=== PATIENT | female | born 1960 | race Caucasian/White ===

== ENCOUNTER 2016-08-14 12:51 | Emergency (ER) | payer BC ==
--- NOTE | 2016-08-14 13:10 | ED ---
General Adult HPI - General Chief complaint: Extremity Injury, Upper Stated complaint: Right Hand Injury Time Seen by Provider: 08/14/16 13:04 Source: patient, RN notes reviewed Mode of arrival: ambulatory Limitations: no limitations - History of Present Illness Initial comments: Patient 55-year-old female who presents emergency room today with a chief complaint of injury to the right wrist that occurred yesterday. She does admit that she tripped falling forward on ultrasound. Does admit that she does have some tenderness with both the distal ulna and radius. States worse with certain movements. She states she was at work today and advised that she needed to have it checked out. Patient denies any other complaints or injuries. Patient denies any recent fever, chills, shortness of breath, chest pain, back pain, abdominal pain, nausea or vomiting, numbness or tingling, dysuria or hematuria, constipation or diarrhea, headaches or visual changes, or any other complaints. - Related Data Home Medications Medication Instructions Recorded Confirmed Calcium Carb-Vit D 500Mg-200Un 1 tab PO DAILY 12/05/13 08/14/16 [Oscal 500+D] HYDROcodone/APAP 10-325MG [[place] 1 tab PO BID PRN 12/05/13 08/14/16 10-325] Losartan/Hydrochlorothiazide 1 tab PO DAILY 12/05/13 08/14/16 [Losartan-Hctz 100-12.5 mg Tab] Metoprolol Succinate [Toprol XL] 50 mg PO DAILY 12/05/13 08/14/16 ALPRAZolam [Alprazolam] 0.5 mg PO BID PRN 08/14/16 08/14/16 Insuln Asp Prt/Insulin Aspart 30 unit SQ AC-BID@0700,1200 08/14/16 08/14/16 [NovoLOG MIX 70-30 VIAL] Insuln Asp Prt/Insulin Aspart 50 unit SQ AC-SUPPER 08/14/16 08/14/16 [NovoLOG MIX 70-30 VIAL] Levothyroxine Sodium [Synthroid] 112 mcg PO DAILY 08/14/16 08/14/16 Meloxicam [Meloxicam] 15 mg PO DAILY 08/14/16 08/14/16 amLODIPine [Norvasc] 5 mg PO DAILY 08/14/16 08/14/16 metFORMIN HCL 1,000 mg PO BID 08/14/16 08/14/16 Allergies Allergy/AdvReac Type Severity Reaction Status Date / Time No Known Allergies Allergy Verified 08/14/16 13:33 Review of Systems ROS Statement: Those systems with pertinent positive or pertinent negative responses have been documented in the HPI. ROS Other: All systems not noted in ROS Statement are negative. Past Medical History Past Medical History: Diabetes Mellitus, Hypertension, Sleep Apnea/CPAP/BIPAP, Thyroid Disorder Additional Past Medical History / Comment(s): obesity History of Any Multi-Drug Resistant Organisms: None Reported Past Surgical History: Bariatric Surgery, Section, Cholecystectomy, Joint Replacement, Tonsillectomy, Tubal Ligation Additional Past Surgical History / Comment(s): Bunyan surgery, D&Cs knee replacement Past Anesthesia/Blood Transfusion Reactions: Motion Sickness, Postoperative Nausea & Vomiting (PONV) Past Psychological History: Anxiety, Depression Smoking Status: Never smoker Past Alcohol Use History: None Reported Past Drug Use History: None Reported - Past Family History Mother Family Medical History: Cancer Father Family Medical History: Diabetes Mellitus Additional Family Medical History / Comment(s): epilepsy General Exam - General Exam Comments Initial Comments: General: The patient is awake and alert, in no distress, and does not appear acutely ill. Neck: The neck is supple, there is no tenderness or JVD. Cardiovascular: There is a regular rate and rhythm. No murmur, rub or gallop is appreciated. Respiratory: Lungs are clear to auscultation, respirations are non-labored, breath sounds are equal. No wheezes, stridor, rales, or rhonchi. Musculoskeletal: Normal appearance the right wrist obvious deformity. Shows full range of motion all directions. Sensations are intact with pulses equal bilaterally 2+. Mild tenderness both the distal radius and ulna. No snuffbox tenderness. Strength 5/5. Neurological: A&O x 3. CN II-XII intact, There are no obvious motor or sensory deficits. Coordination appears grossly intact. Speech is normal. Skin: Skin is warm and dry and no rashes or lesions are noted. Psychiatric: Normal mood and affect. Limitations: no limitations Course Vital Signs 08/14/16 13:00 Temperature 97.5 F L Pulse Rate 92 Respiratory 18 Rate Blood Pressure 172/79 O2 Sat by Pulse 97 Oximetry Medical Decision Making - Medical Decision Making Patient's x-rays reviewed and does show possible ligamentous injury with widening of the scaphoid lunate on x-ray. No fractures appreciated. Patient has been splinted in a short arm volar splint. Patient advised to leave splint placed follow-up orthopedics over the next 2 days. Disposition Clinical Impression: Wrist injury Disposition: HOME SELF-CARE Condition: Good Instructions: Wrist Injury (ED) Additional Instructions: Please continue to ice elevate the affected area until follow-up with orthopedics. Please leave splint placed until follow-up appointment. Please return to emergency room for any other concerns. Referrals: Isac Duarte MD [Primary Care Provider] - 1-2 days Luis Rendon MD [Medical Doctor] - 1-2 days Time of Disposition: 14:24
--- NOTE | 2016-08-14 13:34 | XR ---
EXAMINATION TYPE: XR wrist complete RT DATE OF EXAM ORDERED: 08/14/2016 1:24 PM HISTORY: Pain. COMPARISON: Previous study dated 03/29/2013. FINDINGS: There are degenerative changes in the triscaphe joint. There is widening of scapholunate d istance suggesting scapholunate ligament tear. No fracture, dislocation or other acute osseous lesion is seen. IMPRESSION: 1. NO ACUTE OSSEOUS LESION. DEGENERATIVE CHANGE IN THE TRISCAPHE JOINT. 3. WIDENING OF THE SCAPHOLUNATE DISTANCE SUGGESTS SCAPHOLUNATE LIGAMENT TEAR.
[2016-08-14 14:34] VITALS: BP 157/84; PULSE 85; RESP 16; TEMP 97.9
== END 2016-08-14 14:36 | disposition home or self-care (01) ==
LOC: EC 12:51
DX: S69.91XA Unspecified injury of right wrist, hand and finger(s), initial encounter (principal); E11.9 Type 2 diabetes mellitus without complications; I10 Essential (primary) hypertension; E07.9 Disorder of thyroid, unspecified; E66.9 Obesity, unspecified; F32.9 Major depressive disorder, single episode, unspecified; F41.9 Anxiety disorder, unspecified; Z79.4 Long term (current) use of insulin; Z79.1 Long term (current) use of non-steroidal anti-inflammatories (NSAID); Z79.899 Other long term (current) drug therapy; W01.0XXA Fall on same level from slipping, tripping and stumbling without subsequent striking against object, initial encounter; Y92.009 Unspecified place in unspecified non-institutional (private) residence as the place of occurrence of the external cause
CPT/HCPCS: 29125; 99283

== ENCOUNTER → 2019-02-16 | Outpatient (CLI) | payer BC ==
--- NOTE | 2019-02-16 20:17 | CONS ---
CONSULTATION DATE OF SERVICE: 02/16/2019 This patient is a 58-year-old lady who has been followed in [facility] for treatment of obstructive sleep apnea-hypopnea syndrome. HISTORY OF PRESENT ILLNESS/SLEEP-WAKE EVALUATION: The patient has had history of obstructive sleep apnea for about 10 years. Her sleep schedule is from 8 p.m. to 4:30 a.m. on working days and to 6 a.m. on weekends. No problems with falling asleep, although she has a TV set in bedroom. She sleeps on the back and side positions. She is trying to use her CPAP equipment every night, but recently she has had problems with the equipment because the machine stops working sometimes. She has significantly lost weight since previous titration of about 61 pounds. She wakes up from sleep 2 times with nocturia, even while she is using her CPAP equipment. No history of hypnagogic hallucinations, sleep paralysis or cataplexy. The patient feels sleepy during the day. [place] Sleepiness Scale is increased at 11. PAST MEDICAL HISTORY: Past medical history is positive for: 1. Diabetes mellitus. 2. Hypertension. 3. Hyperlipidemia. 4. Hypothyroidism. PAST SURGICAL HISTORY: 1. Tonsillectomy. 2. Cholecystectomy. 3. Lap band surgery. 4. Total left knee replacement in 2016. MEDICATIONS: 1. Losartan. 2. Metoprolol. 3. Crestor. 4. Levothyroxine. 5. NovoLog. 6. Trulicity. 7. Basaglar. 8. Metformin. 9. Farxiga. 10.Omeprazole. SOCIAL HISTORY: Negative for smoking. Alcohol consumption none. FAMILY HISTORY: Hypertension, heart problems, epilepsy, stroke, arthritis, sinus problems, sleep apnea, bronchitis, cancer, headaches, diabetes, thyroid problems, acid reflux, restless legs. REVIEW OF SYSTEMS: Awakenings from sleep, sleepiness during the day. Swelling of legs. PHYSICAL EXAMINATION: GENERAL: A pleasant lady without distress. VITAL SIGNS: BP 135/85, HR 97, RR 16, height 5 feet 6 inches, weight 321.8, body mass index 51.8, temperature 98.1, oxygen saturation at room air 98%. HEENT: PERRLA, EOMI. Evaluation of oropharynx showed tongue protrudes midline. Low position of soft palate. Mallampati III. Wide pillars. Slight redness of the throat. NECK: Supple. No JVD. Thyroid is not palpable. Wide neck; 17-3/4 inches in circumference. LUNGS: Clear to percussion and to auscultation. Good air exchange. No wheezing or rhonchi. HEART: S1, S2 regular. No murmurs, gallops or rubs. ABDOMEN: Obese. EXTREMITIES: One plus bilateral ankle edema. CHOIR SINGER: Awake, alert, and oriented X3. Cranial nerves 2 to 7 intact. There is no fasciculation or atrophy. noted. No focal deficits observed. IMPRESSION: 1. Obstructive sleep apnea-hypopnea syndrome. The patient continues to use her CPAP equipment but at present has some problem with her CPAP unit. She lost about 61 pounds of weight. She wakes up from sleep with nocturia while using her CPAP and has sleepiness during the day while in treatment with CPAP. 2. Severe obesity. Present body mass index is 51.8. 3. Hypertension. 4. Diabetes mellitus. 5. Hyperlipidemia. 6. Hypothyroidism. 7. Status post tonsillectomy. 8. Status post cholecystectomy. 9. Status post lap band surgery. 10.Status post total left knee replacement. 11.Swelling of the legs. PLAN: 1. Repeat CPAP titration for re-evaluation of effective CPAP pressure. 2. Continue losing weight. 3. Sleep hygiene with regular time in bed for at least 7-1/2 to 8 hours. 4. No driving if feeling any sleepiness. 5. I will send a prescription for all necessary CPAP supplies. Thank you very much for allowing me to participate in the management of your patient. Sincerely, Irineo Krishnamurthy MD, PhD, FAASM Diplomat of [employer] [facility] Administrator [facility] [place] MMODL / DIN: [id number] /
== END | disposition home or self-care (01) ==
LOC: SLEEP 15:09
PROVIDERS: ATTEND Internal Medicine
DX: G47.33 Obstructive sleep apnea (adult) (pediatric) (principal); E66.9 Obesity, unspecified; Z68.43 Body mass index [BMI] 50.0-59.9, adult; I10 Essential (primary) hypertension; E11.9 Type 2 diabetes mellitus without complications; E78.5 Hyperlipidemia, unspecified; E03.9 Hypothyroidism, unspecified; R35.1 Nocturia; M79.89 Other specified soft tissue disorders; Z90.89 Acquired absence of other organs; Z90.49 Acquired absence of other specified parts of digestive tract; Z98.84 Bariatric surgery status; Z96.652 Presence of left artificial knee joint; Z79.84 Long term (current) use of oral hypoglycemic drugs; Z79.4 Long term (current) use of insulin; Z79.899 Other long term (current) drug therapy

== ENCOUNTER 2019-04-12 14:39 | Emergency (ER) | payer BC ==
[2019-04-12 14:50] VITALS: BP 172/81; PULSE 103; RESP 20; TEMP 97.6
--- NOTE | 2019-04-12 15:06 | ED ---
ENT HPI - General Chief complaint: ENT Stated complaint: sore throat Time Seen by Provider: 04/12/19 14:50 Source: patient, RN notes reviewed Mode of arrival: ambulatory Limitations: no limitations - History of Present Illness Initial comments: 58-year-old female presents emergency Department chief complaint nasal congestion, sinus pressure, sore throat. Patient has been sick for 1 week. She does have a cough and nonproductive no chest pain or shortness of breath. She has tried every [id number] medication she can think of is not improving. Patient denies any difficulty swallowing patient states that she is very dry, sore feeling. - Related Data Home Medications Medication Instructions Recorded Confirmed Calcium Carb-Vit D 500Mg-200Un 1 tab PO DAILY 12/05/13 08/14/16 [Oscal 500+D] HYDROcodone/APAP 10-325MG [[place] 1 tab PO BID PRN 12/05/13 08/14/16 10-325] Losartan/Hydrochlorothiazide 1 tab PO DAILY 12/05/13 08/14/16 [Losartan-Hctz 100-12.5 mg Tab] Metoprolol Succinate [Toprol XL] 50 mg PO DAILY 12/05/13 08/14/16 ALPRAZolam [Alprazolam] 0.5 mg PO BID PRN 08/14/16 08/14/16 Insuln Asp Prt/Insulin Aspart 30 unit SQ AC-BID@0700,1200 08/14/16 08/14/16 [NovoLOG MIX 70-30 VIAL] Insuln Asp Prt/Insulin Aspart 50 unit SQ AC-SUPPER 08/14/16 08/14/16 [NovoLOG MIX 70-30 VIAL] Levothyroxine Sodium [Synthroid] 112 mcg PO DAILY 08/14/16 08/14/16 Meloxicam 15 mg PO DAILY 08/14/16 08/14/16 amLODIPine [Norvasc] 5 mg PO DAILY 08/14/16 08/14/16 metFORMIN HCL 1,000 mg PO BID 08/14/16 08/14/16 Previous Rx's Medication Instructions Recorded Amoxicillin/Potassium Clav 1 tab PO Q12HR #20 tab 04/12/19 [Augmentin 875-125 Tablet] Allergies Allergy/AdvReac Type Severity Reaction Status Date / Time No Known Allergies Allergy Verified 04/12/19 14:50 Review of Systems ROS Statement: Those systems with pertinent positive or pertinent negative responses have been documented in the HPI. ROS Other: All systems not noted in ROS Statement are negative. Past Medical History Past Medical History: Diabetes Mellitus, Hypertension, Sleep Apnea/CPAP/BIPAP, Thyroid Disorder Additional Past Medical History / Comment(s): obesity History of Any Multi-Drug Resistant Organisms: None Reported Past Surgical History: Bariatric Surgery, Section, Cholecystectomy, Joint Replacement, Tonsillectomy, Tubal Ligation Additional Past Surgical History / Comment(s): Bunyan surgery, D&Cs knee replac ement Past Anesthesia/Blood Transfusion Reactions: Motion Sickness, Postoperative Nausea & Vomiting (PONV) Past Psychological History: Anxiety, Depression Smoking Status: Never smoker Past Alcohol Use History: None Reported Past Drug Use History: None Reported - Past Family History Mother Family Medical History: Cancer Father Family Medical History: Diabetes Mellitus Additional Family Medical History / Comment(s): epilepsy General Exam Limitations: no limitations General appearance: alert, in no apparent distress Head exam: Present: atraumatic, normocephalic, normal inspection Eye exam: Present: normal appearance, PERRL, EOMI. Absent: scleral icterus, conjunctival injection, periorbital swelling ENT exam: Present: mucous membranes moist, TM's normal bilaterally, normal external ear exam. Absent: normal oropharynx (Postnasal drainage, cobblestoning, mild erythema) Neck exam: Present: normal inspection, full ROM. Absent: tenderness, meningismus, lymphadenopathy Respiratory exam: Present: normal lung sounds bilaterally. Absent: respiratory distress, wheezes, rales, rhonchi, stridor Cardiovascular Exam: Present: regular rate, normal rhythm, normal heart sounds. Absent: systolic murmur, diastolic murmur, rubs, gallop, clicks GI/Abdominal exam: Present: soft, normal bowel sounds. Absent: distended, ten derness, guarding, rebound, rigid Course Vital Signs 04/12/19 14:46 Temperature 97.6 F Pulse Rate 103 H Respiratory 20 Rate Blood Pressure 172/81 O2 Sat by Pulse 96 Oximetry Medical Decision Making - Medical Decision Making Patient was treated for acute sinusitis, acute pharyngitis with Augmentin. Patient will continue [id number] cough and cold medications return parameters discussed. Disposition Clinical Impression: Sore throat, Acute sinusitis Disposition: HOME SELF-CARE Condition: Stable Instructions (If sedation given, give patient instructions): Sinusitis (ED) Additional Instructions: Please return to the Emergency Department if symptoms worsen or any other concerns. Prescriptions: Amoxicillin/Potassium Clav [Augmentin 875-125 Tablet] 1 tab PO Q12HR #20 tab Is patient prescribed a controlled substance at d/c from ED?: No Referrals: Isac Duarte MD [Primary Care Provider] - 1-2 days Time of Disposition: 15:06
== END 2019-04-12 15:15 | disposition home or self-care (01) ==
LOC: EC 14:39
DX: J01.90 Acute sinusitis, unspecified (principal); J02.9 Acute pharyngitis, unspecified; E11.9 Type 2 diabetes mellitus without complications; I10 Essential (primary) hypertension; E07.9 Disorder of thyroid, unspecified; G47.30 Sleep apnea, unspecified; Z79.1 Long term (current) use of non-steroidal anti-inflammatories (NSAID); Z79.4 Long term (current) use of insulin; Z79.890 Hormone replacement therapy; Z79.899 Other long term (current) drug therapy; Z90.89 Acquired absence of other organs; Z99.89 Dependence on other enabling machines and devices
CPT/HCPCS: 99282

== ENCOUNTER → 2019-05-31 | Outpatient (CLI) | payer BC ==
--- NOTE | 2019-05-31 17:52 | PN ---
PROGRESS NOTE DATE OF SERVICE: 05/31/2019 58-year-old lady has been followed in Sleep Center for treatment of obstructive sleep apnea-hypopnea syndrome. Recently patient had CPAP titration and after that she received new CPAP unit. Today is her first visit with new CPAP equipment. She likes her new machine. Machine works well for her. She is able to use it every night without significant problems with the machine. Sometimes she is saying that there is a red face on the screen of the machine indicating that she has a leak from the mask. [place] Sleepiness Scale today is 8, which is in normal range. I checked CPAP unit, range of the pressure 9-15, average pressure 10.4 cm of water. The patient is using equipment every night 30/30 nights and 30/30 nights more than 4 hours with average usage 8.2 hours per night, which is 100% compliance with treatment. Leak is high 47 L/minute. At the same time, apnea-hypopnea index is only 1.2, which is absolutely perfect. MEDICATIONS: Losartan, metoprolol, Crestor, levothyroxine, NovoLog, Trulicity, Basaglar, Metformin, omeprazole. PHYSICAL EXAM: During physical examination, patient in no distress. BP 165/79, HR 98, RR 16, weight 310, temp 97.9 oxygen saturation at room air 97%. HEENT: Oropharynx low position of soft palate. Mallampati 4. NECK: Supple, no JVD. Thyroid is not palpable. LUNGS: Clear to percussion and to auscultation. Good air exchange. No wheezing or rhonchi. HEART: S1, S2 regular. No murmurs, gallops, or rubs. ABDOMEN: Obese. Soft and nontender. Bowel sounds are present. No organomegaly appreciated. EXTREMITIES: 1+ ankle edema. MEDICAL LEAD: Awake, alert, and oriented X3. Cranial nerves 2 to 7 intact. There is no fasciculation or atrophy. noted. No focal deficits observed. IMPRESSION: 1. Obstructive sleep apnea-hypopnea syndrome. Patient demonstrated 100% compliance with treatment benefitting from treatment. Normal aspiration on CPAP. 2. Significant leak according to reading from the machine, most probably patient opening her mouth. 3. Obesity. 4. Hypertension. 5. Diabetes mellitus. 6. Hypothyroidism. 7. Status post tonsillectomy. 8. Status post lap band surgery. 9. Hyperlipidemia. 10.Status post cholecystectomy. 11.Status post total knee replacement on left side. PLAN: 1. Patient will continue to use CPAP equipment every night for the whole night. 2. Losing weight. 3. Sleep hygiene with regular time in bed for at least 7.5 to 8 hours. 4. Prescription for chin strap to avoid leak. 5. No driving if feeling sleepiness. Thank you very much for allowing me to participate in management of your patient. Sincerely, Irineo Krishnamurthy MD, PhD, FAASM Diplomat of [employer] [employer] [employer] [place] Consultant [facility] [place] MMODL / IJN: [id number] /
== END | disposition home or self-care (01) ==
LOC: SLEEP 15:21
PROVIDERS: ATTEND Internal Medicine
DX: G47.33 Obstructive sleep apnea (adult) (pediatric) (principal); E66.9 Obesity, unspecified; I10 Essential (primary) hypertension; E11.9 Type 2 diabetes mellitus without complications; E78.5 Hyperlipidemia, unspecified; E03.9 Hypothyroidism, unspecified; Z90.89 Acquired absence of other organs; Z98.84 Bariatric surgery status; Z90.49 Acquired absence of other specified parts of digestive tract; Z96.652 Presence of left artificial knee joint; Z99.89 Dependence on other enabling machines and devices; Z79.890 Hormone replacement therapy; Z79.4 Long term (current) use of insulin; Z79.899 Other long term (current) drug therapy

== ENCOUNTER → 2020-11-08 | Outpatient (CLI) | payer BC ==
--- NOTE | 2020-11-08 11:22 | XR ---
EXAMINATION TYPE: XR Hip Bilateral Complete DATE OF EXAM: 11/08/2020 CLINICAL HISTORY: pain TECHNIQUE: AP and frogleg views of the bilateral hip are obtained. COMPARISON: None. FINDINGS: There is no acute fracture/dislocation evident. The joint space appears within normal li mits. The overlying soft tissue appears unremarkable. IMPRESSION: 1. There is no acute fracture or dislocation. ICD 10 NO FRACTURE, INITIAL EVALUATION
== END | disposition home or self-care (01) ==
LOC: RADXRMAIN 10:39
PROVIDERS: ATTEND Student in an Organized Health Care Education/Training Program
DX: M25.552 Pain in left hip (principal); M25.551 Pain in right hip
CPT/HCPCS: 73521

== ENCOUNTER 2022-05-13 09:18 | Emergency (ER) | payer BC, OTHER ==
[2022-05-13 09:30] LABS: Glucose,Whole Blood 506 mg/dL (70-110)
[2022-05-13] MEDS ORDERED: SODIUM CHLORIDE 0.9% 2,000 ML IV STA (09:42)
[2022-05-13] MEDS ORDERED: PANTOPRAZOLE 40 MG/10 ML VIAL IVP STA (09:42)
[2022-05-13] MEDS ORDERED: METOPROLOL SUCCINATE (ER) 50 MG TAB.ER.24H PO STA (09:44)
[2022-05-13] MEDS ORDERED: KETOROLAC 15 MG/ML 1 ML VIAL IVP STA (09:48)
--- NOTE | 2022-05-13 09:51 | ED ---
General Adult HPI - General Chief complaint: Recheck/Abnormal Lab/Rx Stated complaint: abn labs, hypertension Time Seen by Provider: 05/13/22 09:35 Source: patient, RN notes reviewed, old records reviewed Mode of arrival: ambulatory - History of Present Illness Initial comments: Patient is a 61-year-old female with past history remarkable for hypertension, diabetes, sleep apnea, obesity who presents emergency Department after and sent by her PCP for further evaluation. I PCP yesterday, was hypertensive with systolics in the high 100s. States she believes she has been compliant with medications but did not take them this morning. Patient's blood sugar was also high in the 500s. She presents today after being told to come be evaluated. Patient does endorse some mild chest discomfort which has been ongoing for weeks, is more or less always present with no known palliative or provocative factors. Describes as a pressure sensation over the entire chest. No change in it. Denies any coughing but does endorse rhinorrhea. She states she has ALLERGIES. Denies any lower extremity pain or swelling. Denies any abdominal pain, nausea, vomiting. Does have chronic loose stool. Denies any urinary complaints. Denies any known sick contacts are sick symptoms. Denies any fevers. States she does feel thirsty. No change in urinary habits. Has no other acute complaints at this time. She presents to be evaluated for possible DKA as well as for her hypertension. He continues to endorse a slight headache that she describes as a typical headache for her in a bandlike distribution. - Related Data Home Medications Medication Instructions Recorded Confirmed Calcium Carb-Vit D 500Mg-5Mcg 1 tab PO DAILY 12/05/13 08/14/16 [Oscal 500+D 5 Mcg (200 Iu)] HYDROcodone/APAP 10-325MG [[place] 1 tab PO BID PRN 12/05/13 08/14/16 10-325] Losartan/Hydrochlorothiazide 1 tab PO DAILY 12/05/13 08/14/16 [Losartan-Hctz 100-12.5 mg Tab] Metoprolol Succinate [Toprol XL] 50 mg PO DAILY 12/05/13 08/14/16 ALPRAZolam [Alprazolam] 0.5 mg PO BID PRN 08/14/16 08/14/16 Insuln Asp Prt/Insulin Aspart 30 unit SQ AC-BID@0700,1200 08/14/16 08/14/16 [NovoLOG MIX 70-30 VIAL] Insuln Asp Prt/Insulin Aspart 50 unit SQ AC-SUPPER 08/14/16 08/14/16 [NovoLOG MIX 70-30 VIAL] Levothyroxine Sodium [Synthroid] 112 mcg PO DAILY 08/14/16 08/14/16 Meloxicam 15 mg PO DAILY 08/14/16 08/14/16 amLODIPine [Norvasc] 5 mg PO DAILY 08/14/16 08/14/16 metFORMIN HCL [Glucophage] 1,000 mg PO BID 08/14/16 08/14/16 Previous Rx's Medication Instructions Recorded Amoxicillin/Potassium Clav 1 tab PO Q12HR #20 tab 04/12/19 [Augmentin 875-125 Tablet] Allergies Allergy/AdvReac Type Severity Reaction Status Date / Time No Known Allergies Allergy Verified 05/13/22 09:31 Review of Systems ROS Statement: Those systems with pertinent positive or pertinent negative responses have been documented in the HPI. Review of Systems: CONST: Denies fever EYES: Denies blurry vision ENT: Denies nasal congestion C/V: Denies Chest pain RESP: Denies shortness of breath GI: Denies abdominal pain : Denies dysuria SKIN: Denies rash. MSK: Denies joint pain. NEURO: Endorses headache ROS Other: All systems not noted in ROS Statement are negative. Past Medical History Past Medical History: Diabetes Mellitus, Hypertension, Sleep Apnea/CPAP/BIPAP, Thyroid Disorder Additional Past Medical History / Comment(s): obesity History of Any Multi-Drug Resistant Organisms: None Reported Past Surgical History: Bariatric Surgery, Section, Cholecystectomy, Joint Replacement, Tonsillectomy, Tubal Ligation Additional Past Surgical History / Comment(s): [place] surgery, D&Cs knee replacement Past Anesthesia/Blood Transfusion Reactions: Motion Sickness, Postoperative Nausea & Vomiting (PONV) Smoking Status: Current every day smoker, Former smoker Past Alcohol Use History: None Reported Past Drug Use History: None Reported - Past Family History Mother Family Medical History: Cancer Father Family Medical History: Diabetes Mellitus Additional Family Medical History / Comment(s): epilepsy General Exam - General Exam Comments Initial Comments: General: Appears in no acute distress. HEAD: Normal with no signs of head trauma. EYES: PERRLA, EOMI, conjunctiva normal, no discharge. ENT: Hearing grossly intact, normal oropharynx. Moist mucous membrane. RESPIRATORY: Clear breath sounds bilaterally. No wheezes, rales, or rhonchi. C/V: Regular rate and rhythm. S1 and S2 auscultated, no edema, peripheral pulses 2+ and intact throughout ABD: Abd is soft, nontender, nondistended EXT: Normal range of motion, no obvious deformity SKIN: No rashes or lesions observed on exposed skin. NEURO: Alert and oriented x 4. Cranial nerves II-XII intact. No focal sensory or strength deficits. Course Vital Signs 05/13/22 05/13/22 05/13/22 09:26 10:32 11:00 Temperature 97.6 F Pulse Rate 98 77 82 Respiratory 16 16 18 Rate Blood Pressure 162/90 162/79 162/79 O2 Sat by Pulse 97 98 99 Oximetry 05/13/22 11:30 Temperature Pulse Rate 70 Respiratory 20 Rate Blood Pressure 160/86 O2 Sat by Pulse 98 Oximetry Medical Decision Making - Medical Decision Making Based on the patient's presentation and physical exam, she presents with a point of care blood sugar over 500, and mildly hypertensive. Did not take her blood pressure medications this morning. Only other complaint is a mild headache. I would like to rule out DKA for her and therefore we will obtain abdominal laboratory studies as well as acetone. Did recommend we also obtain EKG, troponin due to her chest discomfort. She was in agreement this plan. Chest x- ray will be obtained as well as urinalysis to look for signs of infection as well as viral swabs. She'll be given 2 L IV fluid bolus as well as IV Protonix, Toradol. She'll be given a dose of her home metoprolol. Vital signs are within acceptable limits otherwise. Slightly hypertensive. EKG shows no signs of acute ischemia.Patient's EKG shows no signs of acute ischemia. Chest x-ray reveals no evidence of acute cardio pulmonary process. Laboratory studies are remarkable for no evidence of DKA. She does have asymptomatic hyperglycemia. Troponin is undetectable. Covid, flu, RSV negative. Reevaluation after fluid boluses, patient's Accu-Chek reads 381. She'll be given IV insulin. I did that her on her results. She expressed understanding. At this time she states she has not filled the prescription is and has not been taking her medications for quite some time. She states she has pharmacy holding her prescriptions as she does get. This week and wishes to fill them this week. I stressed the importance of medication compliance. She was in agreement this plan. Repeat Accu-Chek is within acceptable limits. She'll be discharged home at this time with strict instructions to fill her prescriptions. I instructed the patient to follow up with their PCP in the next 1-3 days. I explained that the patient should return to the emergency department if they experience any worsening symptoms. Strict return precautions were discussed with the patient. The patient expressed understanding of these instructions. I answered all questions that the patient had. The patient was discharged home in good condition with their prescriptions and follow up information. Was pt. sent in by a medical professional or institution (, PA, MACHINE INSPECTOR, urgent care, hospital, or prison...) When possible be specific @ -Yes, her PCP Dr. Barraza sent her in for evaluation of a concern for DKA. Did you speak to anyone other than the patient for history (EMS, parent, family, police, friend...)? What history was obtained from this source @ -No Did you review nursing and triage notes (agree or disagree)? Why? @ -I reviewed and agree with nursing and triage notes Were old charts reviewed (outside hosp., previous admission, EMS record, old EKG, old radiological studies, urgent care reports/EKG's, prison records)? Report findings @ -Yes, old charts were reviewed and to EKG from June 2014 was reviewed. Differential Diagnosis (chest pain, altered mental status, abdominal pain women, abdominal pain men, vaginal bleeding, weakness, fever, dyspnea, syncope, heada tab, dizziness, GI bleed, back pain, seizure, CVA, palpatations, mental health)? @ -Hyperglycemia, DKA, symptomatic hypertension, ACS, chronic chest pain, medication noncompliance. This list is not all inclusive. EKG interpreted by me (3pts min.). @ -As above X-rays interpreted by me (1pt min.). @ -Chest x-ray shows no acute cardio pulmonary process. CT interpreted by me (1pt min.). @ -None done U/S interpreted by me (1pt. min.). @ -None done What testing was considered but not performed or refused? (CT, X-rays, U/S, labs)? Why? @ -None What meds were considered but not given or refused? Why? @ -None Did you discuss the management of the patient with other professionals (professionals i.e. , PA, MACHINE INSPECTOR, lab, RT, psych nurse, social welfare research worker, injector assembler, teacher, animal services officer, case hardener)? Give summary @ -No Was smoking cessation discussed for >3mins.? @ -No Was critical care preformed (if so, how long)? @ -No Were there social determinants of health that impacted care today? How? (Homelessness, low income, unemployed, alcoholism, drug addiction, transportation, low edu. Level, literacy, decrease access to med. care, assisted, rehab)? @ -Low income, which affects her ability to fill her prescriptions. Was there de-escalation of care discussed even if they declined (Discuss DNR or withdrawal of care, Hospice)? DNR status @ -No What co-morbidities impacted this encounter? (DM, HTN, Smoking, COPD, CAD, Cancer, CVA, ARF, Chemo, Hep., AIDS, mental health diagnosis, sleep apnea, morbid obesity)? @ -Medication noncompliance, diabetes, hypertension. Was patient admitted / discharged? Hospital course, mention meds given and route, prescriptions, significant lab abnormalities, going to OR and other pertinent info. @ -Discharged home. See above for emergency Department course. Undiagnosed new problem with uncertain prognosis? @ -No Drug Therapy requiring intensive monitoring for toxicity (Heparin, Nitro, Insulin, Cardizem)? @ -No Were any procedures done? @ -No Diagnosis/symptom? @ -Hyperglycemia Acute, or Chronic, or Acute on Chronic? @ -Acute Uncomplicated (without systemic symptoms) or Complicated (systemic symptoms)? @ -Uncomplicated Side effects of treatment? @ -No Exacerbation, Progression, or Severe Exacerbation? @ -No Poses a threat to life or bodily function? How? (Chest pain, [place], VT, pneumonia, PE, COPD, DKA, ARF, appy, cholecystitis, CVA, Diverticulitis, Homicidal, Suicidal, threat to staff... and all critical care pts) @ -Yes, if uncontrolled can result in significant morbidity and mortality. Diagnosis/symptom? @ -Hypertension Acute, or Chronic, or Acute on Chronic? @ -Acute Uncomplicated (without systemic symptoms) or Complicated (systemic symptoms)? @ -Uncomplicated Side effects of treatment? @ -none Exacerbation, Progression, or Severe Exacerbation] @ -no Poses a threat to life or bodily function? @ -no Diagnosis/symptom? @ -Medication noncompliance Acute, or Chronic, or Acute on Chronic? @ -Acute Uncomplicated (without systemic symptoms) or Complicated (systemic symptoms)? @ -Complicated Side effects of treatment? @ -none Exacerbation, Progression, or Severe Exacerbation] @ -no Poses a threat to life or bodily function? @ -no - Lab Data Result diagrams: 05/13/22 10:13 05/13/22 10:13 Lab Results 05/13/22 05/13/22 05/13/22 Range/Units 09:29 10:13 10:13 WBC 6.2 (3.8-10.6) k/uL RBC 4.56 (3.80-5.40) m/uL Hgb 12.9 (11.4-16.0) gm/dL Hct 39.4 (34.0-46.0) % MCV 86.3 (80.0-100.0) fL MCH 28.2 (25.0-35.0) pg MCHC 32.7 (31.0-37.0) g/dL RDW 12.9 (11.5-15.5) % Plt Count 231 (150-450) k/uL MPV 8.3 Neutrophils % 80 % Lymphocytes % 14 % Monocytes % 4 % Eosinophils % 1 % Basophils % 1 % Neutrophils # 4.9 (1.3-7.7) k/uL Lymphocytes # 0.9 L (1.0-4.8) k/uL Monocytes # 0.2 (0-1.0) k/uL Eosinophils # 0.1 (0-0.7) k/uL Basophils # 0.0 (0-0.2) k/uL PT 10.5 (9.0-12.0) sec INR 1.0 (<1.2) APTT 23.1 (22.0-30.0) sec Sodium (137-145) mmol/L Potassium (3.5-5.1) mmol/L Chloride (98-107) mmol/L Carbon Dioxide (22-30) mmol/L Anion Gap mmol/L BUN (7-17) mg/dL Creatinine (0.52-1.04) mg/dL Est GFR (CKD-EPI)AfAm (>60 ml/min/1.73 sqM) Est GFR (CKD-EPI)NonAf (>60 ml/min/1.73 sqM) Glucose (74-99) mg/dL POC Glucose (mg/dL) 506 H (70-110) mg/dL POC Glu Land Appraiser ID Ankit Lopez Plasma Lactic Acid Esteban (0.7-2.0) mmol/L Calcium (8.4-10.2) mg/dL Total Bilirubin (0.2-1.3) mg/dL AST (14-36) U/L ALT (4-34) U/L Alkaline Phosphatase (38-126) U/L Troponin I (0.000-0.034) ng/mL Total Protein (6.3-8.2) g/dL Albumin (3.5-5.0) g/dL Amylase (30-110) U/L Lipase (23-300) U/L Urine Color Urine Appearance (Clear) Urine pH (5.0-8.0) Ur Specific [place] (1.001-1.035) Urine Protein (Negative) Urine Glucose (UA) (Negative) Urine Ketones (Negative) Urine Blood (Negative) Urine Nitrite (Negative) Urine Bilirubin (Negative) Urine Urobilinogen (<2.0) mg/dL Ur Leukocyte Esterase (Negative) Acetone, Qual (Negative) Influenza Type A (PCR) (Not Detectd) Influenza Type B (PCR) (Not Detectd) RSV (PCR) (Not Detectd) SARS-CoV-2 (PCR) (Not Detectd) 05/13/22 05/13/22 05/13/22 Range/Units 10:13 10:13 10:13 WBC (3.8-10.6) k/uL RBC (3.80-5.40) m/uL Hgb (11.4-16.0) gm/dL Hct (34.0-46.0) % MCV (80.0-100.0) fL MCH (25.0-35.0) pg MCHC (31.0-37.0) g/dL RDW (11.5-15.5) % Plt Count (150-450) k/uL MPV Neutrophils % % Lymphocytes % % Monocytes % % Eosinophils % % Basophils % % Neutrophils # (1.3-7.7) k/uL Lymphocytes # (1.0-4.8) k/uL Monocytes # (0-1.0) k/uL Eosinophils # (0-0.7) k/uL Basophils # (0-0.2) k/uL PT (9.0-12.0) sec INR (<1.2) APTT (22.0-30.0) sec Sodium 134 L (137-145) mmol/L Potassium 4.2 (3.5-5.1) mmol/L Chloride 102 (98-107) mmol/L Carbon Dioxide 25 (22-30) mmol/L Anion Gap 7 mmol/L BUN 16 (7-17) mg/dL Creatinine 0.48 L (0.52-1.04) mg/dL Est GFR (CKD-EPI)AfAm >90 (>60 ml/min/1.73 sqM) Est GFR (CKD-EPI)NonAf >90 (>60 ml/min/1.73 sqM) Glucose 493 H (74-99) mg/dL POC Glucose (mg/dL) (70-110) mg/dL POC Glu Land Appraiser ID Plasma Lactic Acid Esteban 1.1 (0.7-2.0) mmol/L Calcium 9.3 (8.4-10.2) mg/dL Total Bilirubin 0.6 (0.2-1.3) mg/dL AST 17 (14-36) U/L ALT 21 (4-34) U/L Alkaline Phosphatase 111 (38-126) U/L Troponin I (0.000-0.034) ng/mL Total Protein 6.4 (6.3-8.2) g/dL Albumin 3.8 (3.5-5.0) g/dL Amylase 33 (30-110) U/L Lipase 107 (23-300) U/L Urine Color Colorless Urine Appearance Clear (Clear) Urine pH 5.5 (5.0-8.0) Ur Specific [place] 1.029 (1.001-1.035) Urine Protein Negative (Negative) Urine Glucose (UA) 4+ H (Negative) Urine Ketones 2+ H (Negative) Urine Blood Negative (Negative) Urine Nitrite Negative (Negative) Urine Bilirubin Negative (Negative) Urine Urobilinogen <2.0 (<2.0) mg/dL Ur Leukocyte Esterase Negative (Negative) Acetone, Qual Negative (Negative) Influenza Type A (PCR) (Not Detectd) Influenza Type B (PCR) (Not Detectd) RSV (PCR) (Not Detectd) SARS-CoV-2 (PCR) (Not Detectd) 05/13/22 05/13/22 05/13/22 Range/Units 10:13 10:13 12:20 WBC (3.8-10.6) k/uL RBC (3.80-5.40) m/uL Hgb (11.4-16.0) gm/dL Hct (34.0-46.0) % MCV (80.0-100.0) fL MCH (25.0-35.0) pg MCHC (31.0-37.0) g/dL RDW (11.5-15.5) % Plt Count (150-450) k/uL MPV Neutrophils % % Lymphocytes % % Monocytes % % Eosinophils % % Basophils % % Neutrophils # (1.3-7.7) k/uL Lymphocytes # (1.0-4.8) k/uL Monocytes # (0-1.0) k/uL Eosinophils # (0-0.7) k/uL Basophils # (0-0.2) k/uL PT (9.0-12.0) sec INR (<1.2) APTT (22.0-30.0) sec Sodium (137-145) mmol/L Potassium (3.5-5.1) mmol/L Chloride (98-107) mmol/L Carbon Dioxide (22-30) mmol/L Anion Gap mmol/L BUN (7-17) mg/dL Creatinine (0.52-1.04) mg/dL Est GFR (CKD-EPI)AfAm (>60 ml/min/1.73 sqM) Est GFR (CKD-EPI)NonAf (>60 ml/min/1.73 sqM) Glucose (74-99) mg/dL POC Glucose (mg/dL) 381 H (70-110) mg/dL POC Glu Land Appraiser ID Mali Khan Plasma Lactic Acid Esteban (0.7-2.0) mmol/L Calcium (8.4-10.2) mg/dL Total Bilirubin (0.2-1.3) mg/dL AST (14-36) U/L ALT (4-34) U/L Alkaline Phosphatase (38-126) U/L Troponin I <0.012 (0.000-0.034) ng/mL Total Protein (6.3-8.2) g/dL Albumin (3.5-5.0) g/dL Amylase (30-110) U/L Lipase (23-300) U/L Urine Color Urine Appearance (Clear) Urine pH (5.0-8.0) Ur Specific [place] (1.001-1.035) Urine Protein (Negative) Urine Glucose (UA) (Negative) Urine Ketones (Negative) Urine Blood (Negative) Urine Nitrite (Negative) Urine Bilirubin (Negative) Urine Urobilinogen (<2.0) mg/dL Ur Leukocyte Esterase (Negative) Acetone, Qual (Negative) Influenza Type A (PCR) Not Detected (Not Detectd) Influenza Type B (PCR) Not Detected (Not Detectd) RSV (PCR) Not Detected (Not Detectd) SARS-CoV-2 (PCR) Not Detected (Not Detectd) - EKG Data -: EKG Interpreted by Me EKG Comments: 12-lead Electrocardiogram Interpretation Note EKG was reviewed and interpreted by myself. 12-lead ECG performed at 0942 is interpreted by me as revealing normal sinus rhythm at a rate of 87 beats per minute. [place] is normal. MO interval is 187 ms, QRS duration is 66 ms, QTc is 392 ms.. There were no ST or T wave abnormalities to suggest myocardial ischemia or injury. R wave progression across the precordium was satisfactory. By my interpretation this EKG is non-diagnostic for acute ischemia. When compared with EKG from June 2014, no significant change. Disposition Clinical Impression: Hyperglycemia, Hypertension, Noncompliance with medication regimen Disposition: HOME SELF-CARE Condition: Good Instructions (If sedation given, give patient instructions): Diabetes and Nutrition (ED) Is patient prescribed a controlled substance at d/c from ED?: No Referrals: Jennifer Zelaya [Primary Care Provider] - 1-2 days Time of Disposition: 14:20
[2022-05-13 10:31] LABS: Basophils % (A) 1 %; Eosinophils # (A) 0.1 k/uL (0-0.7); Eosinophils % (A) 1 %; HCT 39.4 % (34.0-46.0); HGB 12.9 gm/dL (11.4-16.0); Lymphocytes # (A) 0.9 k/uL (1.0-4.8); Lymphocytes % (A) 14 %; MCH 28.2 pg (25.0-35.0); MCHC 32.7 g/dL (31.0-37.0); MCV 86.3 fL (80.0-100.0); Mean Platelet Volume 8.3; Monocytes # (A) 0.2 k/uL (0-1.0); Monocytes % (A) 4 %; Neutrophils # (A) 4.9 k/uL (1.3-7.7); Neutrophils % (A) 80 %; Platelet Count 231 k/uL (150-450); RBC 4.56 m/uL (3.80-5.40); RDW 12.9 % (11.5-15.5); WBC 6.2 k/uL (3.8-10.6)
--- NOTE | 2022-05-13 10:31 | XR ---
EXAMINATION TYPE: XR chest 2V DATE OF EXAM: 05/13/2022 COMPARISON: 12/04/13 HISTORY: Shortness of breath TECHNIQUE: Frontal and lateral views of the chest are obtained. FINDINGS: Scattered senescent parenchymal changes noted. Hyperinflation compatible with COPD. No evidence for infiltrate. No evidence for atelectasis. Heart size is stable. Mediastinal structures are stable and grossly unremarkable. No evidence for hilar prominence. Degenerative changes dorsal spine. IMPRESSION: 1. No evidence for acute pulmonary disease.
[2022-05-13 10:44] LABS: ALT 21 U/L (4-34); AST 17 U/L (14-36); African American GFR (CKD) >90 (>60 ml/min/1.73 sqM); Albumin 3.8 g/dL (3.5-5.0); Alkaline Phosphatase 111 U/L (38-126); Amylase 33 U/L (30-110); Anion Gap 7 mmol/L; Blood Urea Nitrogen 16 mg/dL (7-17); Calcium 9.3 mg/dL (8.4-10.2); Carbon Dioxide 25 mmol/L (22-30); Chloride 102 mmol/L (98-107); Glucose 493 mg/dL (74-99); Lipase 107 U/L (23-300); Non-African American GFR(CKD) >90 (>60 ml/min/1.73 sqM); Potassium 4.2 mmol/L (3.5-5.1); Sodium 134 mmol/L (137-145); Total Bilirubin 0.6 mg/dL (0.2-1.3); Total Protein 6.4 g/dL (6.3-8.2)
[2022-05-13 10:47] LABS: Partial Thromboplastin Time 23.1 sec (22.0-30.0); Prothrombin Time 10.5 sec (9.0-12.0)
[2022-05-13 12:05] LABS: Appearance,Urine Clear (Clear); Bilirubin,Urine Negative (Negative); Blood,Urine Negative (Negative); Color,Urine Colorless; Glucose,Urine (UA) 4+ (Negative); Leukocyte Esterase,Urine Negative (Negative); Nitrite,Urine Negative (Negative); PH, Urine 5.5 (5.0-8.0); Protein,Urine Negative (Negative); Specific Gravity,Urine 1.029 (1.001-1.035); Urobilinogen,Urine <2.0 mg/dL (<2.0)
[2022-05-13 12:21] LABS: Glucose,Whole Blood 381 mg/dL (70-110)
[2022-05-13 12:32] LABS: Ketones,Urine 2+ (Negative)
[2022-05-13] MEDS ORDERED: INSULIN ASPART (NovoLOG) 100 UNIT/ML VIAL SQ ONE (12:56)
[2022-05-13 15:02] VITALS: BP 154/78; PULSE 76; RESP 18; TEMP 98.6
[2022-05-13 17:55] LABS: Glucose,Whole Blood 335 mg/dL (70-110)
== END 2022-05-13 14:35 | disposition home or self-care (01) ==
LOC: EC 09:18
DX: I10 Essential (primary) hypertension (principal); E11.65 Type 2 diabetes mellitus with hyperglycemia; E66.9 Obesity, unspecified; G47.30 Sleep apnea, unspecified; E07.9 Disorder of thyroid, unspecified; F17.200 Nicotine dependence, unspecified, uncomplicated; Z79.1 Long term (current) use of non-steroidal anti-inflammatories (NSAID); Z79.4 Long term (current) use of insulin; Z79.84 Long term (current) use of oral hypoglycemic drugs; Z79.899 Other long term (current) drug therapy; Z79.890 Hormone replacement therapy; Z20.822 Contact with and (suspected) exposure to COVID-19
CPT/HCPCS: 36415; 93005; 80053; 82150; 82009; 83605; 83690; 84484; 85025; 85610; 85730; 81003; 87636; 71046; 99284; 96374; 96375; 96361 ×2; J1885; C9113

== ENCOUNTER 2023-03-26 15:30 | Emergency (ER) | payer BC ==
[2023-03-26 16:02] VITALS: PULSE 93; TEMP 97.4
--- NOTE | 2023-03-26 16:27 | ED ---
Extremity Problem HPI - General Chief complaint: Skin/Abscess/Foreign Body Stated complaint: left foot irritation Time Seen by Provider: 03/26/23 16:00 Source: patient, RN notes reviewed Mode of arrival: ambulatory Limitations: no limitations - History of Present Illness Initial comments: This is a 62-year-old female who presents to the emergency department for a wound on her left foot. States that she first noticed this a couple of days ago and thought that it was a blister, because she is on her feet a lot. However, the area seems to be enlarging and getting increasingly more painful. She is concerned about this getting much worse because she is diabetic. Denies any fevers or chills. She's not had any drainage from the wound. - Related Data Home Medications Medication Instructions Recorded Confirmed Calcium Carb-Vit D 500Mg-5Mcg 1 tab PO DAILY 12/05/13 08/14/16 [Oscal 500+D 5 Mcg (200 Iu)] HYDROcodone/APAP 10-325MG [[place] 1 tab PO BID PRN 12/05/13 08/14/16 10-325] Losartan/Hydrochlorothiazide 1 tab PO DAILY 12/05/13 08/14/16 [Losartan-Hctz 100-12.5 mg Tab] Metoprolol Succinate [Toprol XL] 50 mg PO DAILY 12/05/13 08/14/16 ALPRAZolam [Alprazolam] 0.5 mg PO BID PRN 08/14/16 08/14/16 Insuln Asp Prt/Insulin Aspart 30 unit SQ AC-BID@0700,1200 08/14/16 08/14/16 [NovoLOG MIX 70-30 VIAL] Insuln Asp Prt/Insulin Aspart 50 unit SQ AC-SUPPER 08/14/16 08/14/16 [NovoLOG MIX 70-30 VIAL] Levothyroxine Sodium [Synthroid] 112 mcg PO DAILY 08/14/16 08/14/16 Meloxicam 15 mg PO DAILY 08/14/16 08/14/16 amLODIPine [Norvasc] 5 mg PO DAILY 08/14/16 08/14/16 metFORMIN HCL [Glucophage] 1,000 mg PO BID 08/14/16 08/14/16 Previous Rx's Medication Instructions Recorded Amoxicillin/Potassium Clav 1 tab PO Q12HR #20 tab 04/12/19 [Augmentin 875-125 Tablet] Cephalexin [Keflex] 500 mg PO Q6HR 10 Days #40 cap 03/26/23 Sulfamethox-Tmp 800-160Mg [Bactrim 1 tab PO Q12HR 10 Days #20 tab 03/26/23 DS 800-160 mg] Allergies Allergy/AdvReac Type Severity Reaction Status Date / Time No Known Allergies Allergy Verified 03/26/23 15:39 Review of Systems ROS Statement: Those systems with pertinent positive or pertinent negative responses have been documented in the HPI. ROS Other: All systems not noted in ROS Statement are negative. Past Medical History Past Medical History: Diabetes Mellitus, Hypertension, Sleep Apnea/CPAP/BIPAP, Thyroid Disorder Additional Past Medical History / Comment(s): obesity History of Any Multi-Drug Resistant Organisms: None Reported Past Surgical History: Bariatric Surgery, Section, Cholecystectomy, Joint Replacement, Tonsillectomy, Tubal Ligation Additional Past Surgical History / Comment(s): Bunyan surgery, D&Cs knee replacement Past Anesthesia/Blood Transfusion Reactions: Motion Sickness, Postoperative Nausea & Vomiting (PONV) Past Psychological History: Anxiety, Depression Smoking Status: Current every day smoker, Former smoker Past Alcohol Use History: None Reported Past Drug Use History: None Reported - Past Family History Mother Family Medical History: Cancer Father Family Medical History: Diabetes Mellitus Additional Family Medical History / Comment(s): epilepsy General Exam Limitations: no limitations General appearance: alert, in no apparent distress Head exam: Present: atraumatic, normocephalic, normal inspection Respiratory exam: Present: normal lung sounds bilaterally. Absent: respiratory distress, wheezes, rales, rhonchi, stridor Cardiovascular Exam: Present: regular rate, normal rhythm, normal heart sounds. Absent: systolic murmur, diastolic murmur, rubs, gallop, clicks Extremities exam: Present: other (Wound to the plantar aspect of the left foot inferior to toes 3-4 on the left foot. Overlying white tissue containing skin cells. No purulence.) Neurological exam: Present: alert, oriented X3, CN II-XII intact Psychiatric exam: Present: normal affect, normal mood Course Vital Signs 03/26/23 03/26/23 03/26/23 15:37 18:50 19:33 Temperature 97.4 F L Pulse Rate 93 93 Respiratory 16 20 Rate Blood Pressure 202/78 170/86 162/90 O2 Sat by Pulse 99 98 Oximetry Medical Decision Making - Medical Decision Making This is a 62 year old female who presents to the emergency department for a wound to her left foot. Was pt. sent in by a medical professional or institution? @ -No Did you speak to anyone other than the patient for history? @ -No Did you review nursing and triage notes? @ -Yes, and I agree, it is accurate with regards to the patient's symptoms. Were old charts reviewed? @ -No Differential Diagnosis? @ -Differential Foot Wound: Cellulitis, abscess, ulcer, contusion, this is not meant to be an all-inclusive list. EKG interpreted by me (3pts min.)? @ -Not obtained X-rays interpreted by me (1pt min.)? @ -X-ray of the left foot obtained. My interpretation identifies soft tissue swelling. CT interpreted by me (1pt min.)? @ -Not obtained U/S interpreted by me (1pt. min.)? @ -Not obtained What testing was considered but not performed? (CT, X-rays, U/S, labs)? Why? @ -None What meds were considered but not given? Why? @ -None Did you discuss the management of the patient with other professionals? @ -No Did you reconcile home meds? @ -No Was smoking cessation discussed for >3mins.? @ -No Was critical care preformed (if so, how long)? @ -No Were there social determinants of health that impacted care today? How? ( Homelessness, low income, unemployed, alcoholism, drug addiction, transportation, low edu. Level, literacy, decrease access to med. care, fdc, rehab)? @ -No Was there de-escalation of care discussed even if they declined? (Discuss DNR or withdrawal of care, Hospice)? @ -No What co-morbidities impacted this encounter? (DM, HTN, Smoking, COPD, CAD, Cancer, CVA, Hep., AIDS, mental health diagnosis, sleep apnea, morbid obesity)? @ -DM Was patient admitted / discharged? @ -Discharged. Lab work obtained demonstrating an elevated CRP of 4.7, and was otherwise unremarkable. On physical examination, this appeared to have started as a blister that broke open, it was still fairly superficial. However, she did have some surrounding erythema and soft tissue swelling on the x-ray. Wound cultures were obtained and we will start the patient on dual antibiotic therapy. Prescription for Bactrim and Keflex provided with dosing instructions reviewed. She was given a dose of ceftriaxone in the emergency department as well prior to discharge. Otherwise advised close follow-up with her primary care provider. Undiagnosed new problem with uncertain prognosis? @ -None Drug Therapy requiring intensive monitoring for toxicity (Heparin, Nitro, Insulin, Cardizem)? @ -None Were any procedures done? @ -None Diagnosis/symptom? @ -Left foot cellulitis Acute, or Chronic, or Acute on Chronic? @ -Acute Uncomplicated (without systemic symptoms) or Complicated (systemic symptoms)? @ -Uncomplicated Side effects of treatment? @ -None Exacerbation, Progression, or Severe Exacerbation] @ -Not applicable Poses a threat to life or bodily function? @ -Not at this time Return precautions reviewed in depth, the patient is instructed to return to the emergency department with any new, worsening, or concerning symptoms. Patient verbalized understanding. This case was discussed in detail with the attending ED physician, Dr. Wells. Presentation, findings, and treatment plan discussed in detail as well. - Lab Data Result diagrams: 03/26/23 17:12 03/26/23 17:12 Lab Results 03/26/23 03/26/23 03/26/23 Range/Units 17:12 17:12 17:12 WBC 7.0 (3.8-10.6) k/uL RBC 4.86 (3.80-5.40) m/uL Hgb 13.8 (11.4-16.0) gm/dL Hct 42.2 (34.0-46.0) % MCV 86.8 (80.0-100.0) fL MCH 28.3 (25.0-35.0) pg MCHC 32.6 (31.0-37.0) g/dL RDW 12.8 (11.5-15.5) % Plt Count 309 (150-450) k/uL MPV 7.8 Neutrophils % 65 % Lymphocytes % 27 % Monocytes % 4 % Eosinophils % 3 % Basophils % 1 % Neutrophils # 4.6 (1.3-7.7) k/uL Lymphocytes # 1.9 (1.0-4.8) k/uL Monocytes # 0.2 (0-1.0) k/uL Eosinophils # 0.2 (0-0.7) k/uL Basophils # 0.0 (0-0.2) k/uL Sodium 134 L (137-145) mmol/L Potassium 4.1 (3.5-5.1) mmol/L Chloride 95 L (98-107) mmol/L Carbon Dioxide 25 (22-30) mmol/L Anion Gap 14 mmol/L BUN 20 H (7-17) mg/dL Creatinine 0.56 (0.52-1.04) mg/dL Est GFR (CKD-EPI)AfAm >90 (>60 ml/min/1.73 sqM) Est GFR (CKD-EPI)NonAf >90 (>60 ml/min/1.73 sqM) Glucose 381 H (74-99) mg/dL Plasma Lactic Acid Esteban 1.4 (0.7-2.0) mmol/L Calcium 9.9 (8.4-10.2) mg/dL Total Bilirubin 0.5 (0.2-1.3) mg/dL AST 22 (14-36) U/L ALT 22 (4-34) U/L Alkaline Phosphatase 157 H (38-126) U/L C-Reactive Protein 4.7 H (<1.0) mg/dL Total Protein 6.9 (6.3-8.2) g/dL Albumin 4.0 (3.5-5.0) g/dL - Radiology Data Radiology results: report reviewed, image reviewed Disposition Clinical Impression: Cellulitis of left foot Disposition: HOME SELF-CARE Instructions (If sedation given, give patient instructions): Cellulitis (ED), Foot Care for People with Diabetes (ED), Diabetic Foot Ulcers (ED) Additional Instructions: Return to the emergency department with any new, worsening, or concerning symptoms. Take both antibiotics as prescribed for 10 days. Apply the silver sulfadiazine cream provided twice daily. Follow up with your primary care provider in 1-2 days. Prescriptions: Sulfamethox-Tmp 800-160Mg [Bactrim DS 800-160 mg] 1 tab PO Q12HR 10 Days #20 tab Cephalexin [Keflex] 500 mg PO Q6HR 10 Days #40 cap Is patient prescribed a controlled substance at d/c from ED?: No Referrals: Jennifer Zelaya [Primary Care Provider] - 1-2 days
--- NOTE | 2023-03-26 16:42 | XR ---
EXAMINATION TYPE: XR foot complete 3 views LT DATE OF EXAM: 03/26/2023 Comparison: 04/22/2012 Clinical History: 62-year-old female pain, redness, infection left third toe for 5 days, pain, Infect ion Findings: There is plantar heel spur. Small posterior calcaneal spur. Generalized soft tissue swelling. With pa rticular attention to the symptomatic third toe, no discrete lytic destruction is identified. Degener ative spurring dorsal midfoot with joint space narrowing particularly at the second and third TMT rk nts. Prior bunionectomy. Some generalized soft tissue swelling. Impression: No specific radiographic evidence of osteomyelitis at this time. Particular attention to the third to e. Dorsal mid foot degenerative spurring. Plantar heel spur. Prior bunionectomy.
[2023-03-26 17:40] LABS: Basophils % (A) 1 %; Eosinophils # (A) 0.2 k/uL (0-0.7); Eosinophils % (A) 3 %; HCT 42.2 % (34.0-46.0); HGB 13.8 gm/dL (11.4-16.0); Lymphocytes # (A) 1.9 k/uL (1.0-4.8); Lymphocytes % (A) 27 %; MCH 28.3 pg (25.0-35.0); MCHC 32.6 g/dL (31.0-37.0); MCV 86.8 fL (80.0-100.0); Mean Platelet Volume 7.8; Monocytes # (A) 0.2 k/uL (0-1.0); Monocytes % (A) 4 %; Neutrophils # (A) 4.6 k/uL (1.3-7.7); Neutrophils % (A) 65 %; Platelet Count 309 k/uL (150-450); RBC 4.86 m/uL (3.80-5.40); RDW 12.8 % (11.5-15.5)
[2023-03-26 18:11] LABS: ALT 22 U/L (4-34); AST 22 U/L (14-36); African American GFR (CKD) >90 (>60 ml/min/1.73 sqM); Alkaline Phosphatase 157 U/L (38-126); Anion Gap 14 mmol/L; Blood Urea Nitrogen 20 mg/dL (7-17); C Reactive Protein 4.7 mg/dL (<1.0); Calcium 9.9 mg/dL (8.4-10.2); Carbon Dioxide 25 mmol/L (22-30); Chloride 95 mmol/L (98-107); Glucose 381 mg/dL (74-99); Non-African American GFR(CKD) >90 (>60 ml/min/1.73 sqM); Potassium 4.1 mmol/L (3.5-5.1); Sodium 134 mmol/L (137-145); Total Bilirubin 0.5 mg/dL (0.2-1.3); Total Protein 6.9 g/dL (6.3-8.2)
[2023-03-26] MEDS ORDERED: cefTRIAXone IN SWFI 1,000 MG/10 ML SYRINGE IVP STA (18:20)
[2023-03-26] MEDS ORDERED: CEPHALEXIN 500MG STARTER PACK 4 CAP BTL PO STA (18:20)
[2023-03-26] MEDS ORDERED: SULFAMETH-TMP DS STARTER PACK 2 TAB BTL PO STA (18:20)
[2023-03-26] MEDS ORDERED: LOSARTAN-HCTZ 50-12.5 MG 1 EACH TAB PO ONE (18:21)
[2023-03-26 19:04] VITALS: RESP 20
[2023-03-26 19:48] VITALS: BP 162/90
== END 2023-03-26 19:37 | disposition home or self-care (01) ==
LOC: EC 15:30
DX: L03.116 Cellulitis of left lower limb (principal); B95.1 Streptococcus, group B, as the cause of diseases classified elsewhere; E11.9 Type 2 diabetes mellitus without complications; I10 Essential (primary) hypertension; E07.9 Disorder of thyroid, unspecified; E66.9 Obesity, unspecified; F41.9 Anxiety disorder, unspecified; F32.A Depression, unspecified; F17.200 Nicotine dependence, unspecified, uncomplicated; Z68.41 Body mass index [BMI] 40.0-44.9, adult; Z79.84 Long term (current) use of oral hypoglycemic drugs; Z79.4 Long term (current) use of insulin; Z79.890 Hormone replacement therapy; Z79.899 Other long term (current) drug therapy
CPT/HCPCS: 99283 ×2; 96374 ×2; 36415; 80053; 83605; 85025; 86140; 87070; 87205; 87075; 73630; J0696; 87077; 87186

== ENCOUNTER → 2023-04-30 | Outpatient (CLI) | payer BC ==
[2023-04-30 15:28] LABS: Basophils # (A) 0.05 X 10*3/uL (0.00-0.10); Basophils % (A) 0.7 %; Eosinophils # (A) 0.19 X 10*3/uL (0.04-0.35); Eosinophils % (A) 2.6 %; HCT 40.3 % (37.2-46.3); HGB 12.6 g/dL (12.0-15.0); Lymphocytes % (A) 26.1 %; MCH 27.9 pg (27.0-32.0); MCHC 31.3 g/dL (32.0-37.0); MCV 89.2 FL (80.0-97.0); Monocytes # (A) 0.45 X 10*3/uL (0.20-1.00); Monocytes % (A) 6.2 %; NRBC Per 100 WBC 0 X 10*3/uL (0.00-0.01); Neutrophils # (A) 4.66 X 10*3/uL (1.80-7.70); Neutrophils % (A) 64.1 %; Platelet Count 325 X 10*3/uL (140-440); RBC 4.52 X 10*6/uL (4.10-5.20); RDW 14.1 % (11.5-14.5); WBC 7.27 X 10*3/uL (4.50-10.00)
[2023-04-30 16:26] LABS: ALT 35 U/L (8-44); AST 25 U/L (13-35); Albumin 4.3 g/dL (3.8-4.9); Albumin/Globulin Ratio 1.79 Ratio (1.60-3.17); Alkaline Phosphatase 93 U/L (41-126); Calcium 10.3 mg/dL (8.7-10.3); Carbon Dioxide 23.7 mmol/L (21.6-31.8); Chloride 104 mmol/L (96-109); Chol/HDL Ratio 2.57 Ratio; Globulin 2.4 g/dL (1.6-3.3); Glucose 117 mg/dL (70-110); LDL Cholesterol,Calculated 65.8 mg/dL (0.0-131.0); Potassium 4.3 mmol/L (3.5-5.5); Sodium 141 mmol/L (135-145); T4, Free (Free Thyroxine) 1.32 ng/dL (0.80-1.80); Total Bilirubin 0.5 mg/dL (0.3-1.2); Total Protein 6.7 g/dL (6.2-8.2); VLDL Calculation 17.22 mg/dL (5.00-40.00)
== END | disposition home or self-care (01) ==
LOC: LABWHC1 11:17
PROVIDERS: ATTEND Student in an Organized Health Care Education/Training Program
DX: E11.65 Type 2 diabetes mellitus with hyperglycemia (principal); E78.5 Hyperlipidemia, unspecified; E55.9 Vitamin D deficiency, unspecified
CPT/HCPCS: 36415; 80053; 80061; 82043; 82306; 82570; 83036; 84439; 84443; 85025

== ENCOUNTER → 2023-05-21 | Outpatient (CLI) | payer BC ==
--- NOTE | 2023-05-25 09:31 | MM ---
Reason for Exam: Screening (asymptomatic). Last mammogram was performed 10 year(s) and 6 month(s) ago. Patient History: Menarche at age 12. First Full-Term at age 25. Postmenopausal. 03/18/2001, Benign Excisional Biopsy on the left side. Paternal aunt had breast cancer, age 70. Risk Values: Dinorah 5 year model risk: 1.7%. NCI Lifetime model risk: 8.2%. Prior Study Comparison: 06/24/2010 Bilateral Screening Mammogram, [facility]. 09/04/2011 Bilateral Screening Mammogram, [facility]. 11/14/2012 Bilateral Screening Mammogram, [facility]. Tissue Density: The breast tissue is almost entirely fat. Findings: Analyzed By CAD. Left breast asymmetry posterior depth 16.2 centers nipple. Right breast: There is no suspicious group of microcalcifications or new suspicious mass. Overall Assessment: Incomplete: need additional imaging evaluation, BI-RAD 0 Management: Screening Mammogram of the left breast. [facility] will attempt to contact patient to return for supplemental views and ultrasound if indicated. Patient should continue monthly self-breast exams. A clinical breast exam by your physician is recommended on an annual basis. This exam should not preclude additional follow-up of suspicious palpable abnormalities. Note on Dinorah scores and lifetime risk: 1. A Dinorah score greater than 3% is considered moderate risk. If this is the case, consider specialist referral to assess eligibility for a risk reducing agent. 2. If overall lifetime risk for the development of breast cancer is 20% or higher, the patient may qualify for future screening with alternating mammogram and breast MRI. Electronically signed and approved by: Willie Goins DO
== END | disposition home or self-care (01) ==
LOC: RADMAMWWP 13:58
PROVIDERS: ATTEND Student in an Organized Health Care Education/Training Program
DX: Z12.31 Encounter for screening mammogram for malignant neoplasm of breast (principal); Z80.3 Family history of malignant neoplasm of breast; Z78.0 Asymptomatic menopausal state
CPT/HCPCS: 77063; 77067

== ENCOUNTER → 2023-08-06 | Outpatient (CLI) | payer BC ==
[2023-08-06 16:05] LABS: ALT 44 U/L (8-44); AST 22 U/L (13-35); Albumin 4.5 g/dL (3.8-4.9); Alkaline Phosphatase 90 U/L (41-126); BUN/Creat Ratio 43.14 Ratio (12.00-20.00); Blood Urea Nitrogen 30.2 mg/dL (9.0-27.0); Calcium 10.2 mg/dL (8.7-10.3); Carbon Dioxide 25.5 mmol/L (21.6-31.8); Chloride 107 mmol/L (96-109); Globulin 2.5 g/dL (1.6-3.3); Glucose 116 mg/dL (70-110); Potassium 4.3 mmol/L (3.5-5.5); Sodium 145 mmol/L (135-145); Total Bilirubin 0.3 mg/dL (0.3-1.2)
== END | disposition home or self-care (01) ==
LOC: LABWHC1 09:19
PROVIDERS: ATTEND Student in an Organized Health Care Education/Training Program
DX: E11.65 Type 2 diabetes mellitus with hyperglycemia (principal)
CPT/HCPCS: 36415; 80053; 83036

== ENCOUNTER → 2024-07-10 | Outpatient (CLI) | payer BC ==
--- NOTE | 2024-07-11 06:23 | MR ---
EXAMINATION TYPE: MR shoulder LT wo con DATE OF EXAM: 07/10/2024 3:22 PM COMPARISON: None. CLINICAL INDICATION: Female, 63 years old with history of S46.012D STRAIN ROTATOR CUFF M25.512 PAIN L EFT SHD, Left shoulder pain due to fall 2023 IV Contrast: cc (None if empty) TECHNIQUE: Multiplanar, multisequence imaging of the left shoulder is performed without contrast. FINDINGS: Rotator Cuff: Mild increased signal along the supraspinatus and infraspinatus tendons which are intac t. Similar intact but slightly heterogeneous subscapularis tendon. Rotator cuff muscle bulk is preser elizabeth. Acromioclavicular Joint: Moderate to severe narrowing with mild spurring and mild to moderate capsula r hypertrophy. Type II downsloping acromion is noted. Glenohumeral Joint: Moderate size joint effusion. No significant spurring. There is present greatest inferiorly. Labrum: Increased signal superior labrum consistent with tear.. Biceps Tendon: The long head of biceps is in normal location within bicipital groove. Increased signa l in the intracapsular portion Bone marrow signal: Subchondral cystic change superior aspect osseous glenoid. Other: No additional significant abnormality is appreciated. IMPRESSION: 1. Superior labral tear is present. 2. At least moderate degenerative changes are seen as detailed above. 3. Mild tendinosis of the rotator cuff tendons. No significant tearing. 4. Tendinosis of the intracapsular portion long head of biceps tendon. [facility], Workstation: [id number], 07/11/2024 6:21 AM
== END | disposition home or self-care (01) ==
LOC: RADMRIMAIN 14:34
PROVIDERS: ATTEND Orthopaedic Surgery Sports Medicine
DX: S46.012D Strain of muscle(s) and tendon(s) of the rotator cuff of left shoulder, subsequent encounter (principal); S43.432D Superior glenoid labrum lesion of left shoulder, subsequent encounter; M67.814 Other specified disorders of tendon, left shoulder; M25.412 Effusion, left shoulder; W19.XXXD Unspecified fall, subsequent encounter

== ENCOUNTER → 2024-10-04 | Outpatient (CLI) | payer BC ==
[2024-10-04 19:38] LABS: Basophils # (A) 0.04 X 10*3/uL (0.00-0.10); Basophils % (A) 0.4 %; Eosinophils # (A) 0.23 X 10*3/uL (0.04-0.35); Eosinophils % (A) 2.1 %; HCT 37.9 % (37.2-46.3); HGB 11.6 g/dL (12.0-15.0); Lymphocytes # (A) 2.27 X 10*3/uL (0.90-5.00); Lymphocytes % (A) 20.7 %; MCH 27.4 pg (27.0-32.0); MCHC 30.6 g/dL (32.0-37.0); MCV 89.6 FL (80.0-97.0); Monocytes # (A) 0.59 X 10*3/uL (0.20-1.00); Monocytes % (A) 5.4 %; NRBC Per 100 WBC 0 X 10*3/uL (0.00-0.01); Neutrophils # (A) 7.76 X 10*3/uL (1.80-7.70); Neutrophils % (A) 70.9 %; Platelet Count 350 X 10*3/uL (140-440); RBC 4.23 X 10*6/uL (4.10-5.20); RDW 14.1 % (11.5-14.5); WBC 10.95 X 10*3/uL (4.50-10.00)
[2024-10-04 20:56] LABS: Appearance,Urine Clear (Clear); Bilirubin,Urine Negative (Negative); Blood,Urine Negative (Negative); Color,Urine Yellow (Yellow); Ketones,Urine Negative (Negative); Nitrite,Urine Negative (Negative); Specific Gravity,Urine 1.017 (1.001-1.030)
[2024-10-04 21:11] LABS: Bacteria,Urine Trace (None Seen)
[2024-10-04 22:05] LABS: ALT 34 U/L (8-44); AST 27 U/L (13-35); Albumin 4.1 g/dL (3.8-4.9); Albumin/Globulin Ratio 1.41 Ratio (1.60-3.17); Alkaline Phosphatase 107 U/L (41-126); BUN/Creat Ratio 41.64 Ratio (12.00-20.00); Blood Urea Nitrogen 45.8 mg/dL (9.0-27.0); Calcium 9.5 mg/dL (8.7-10.3); Carbon Dioxide 22.3 mmol/L (21.6-31.8); Chloride 104 mmol/L (96-109); Globulin 2.9 g/dL (1.6-3.3); Glucose 60 mg/dL (70-110); Phosphorus 5.1 mg/dL (2.4-5.1); Potassium 3.9 mmol/L (3.5-5.5); Sodium 140 mmol/L (135-145); Total Bilirubin 0.3 mg/dL (0.3-1.2)
== END | disposition home or self-care (01) ==
LOC: LABWHC1 14:06
PROVIDERS: ATTEND Internal Medicine Nephrology
DX: N18.30 Chronic kidney disease, stage 3 unspecified (principal)
CPT/HCPCS: 36415; 80053; 81001; 83735; 84100; 85025

== ENCOUNTER 2024-10-30 16:42 | Emergency (ER) | payer BC ==
[2024-10-30 16:47] VITALS: RESP 18
--- NOTE | 2024-10-30 16:59 | ED ---
Extremity Problem HPI - General Chief complaint: Extremity Problem,Nontraumatic Stated complaint: R foot issue Time Seen by Provider: 10/30/24 16:56 Source: patient, RN notes reviewed Mode of arrival: ambulatory Limitations: no limitations - History of Present Illness Initial comments: This is a 63-year-old male with history including DM, hypertension and obesity presenting for right lower extremity pain and swelling x 2 weeks. Patient endorses seeing Dr. Russo, noting lateral ankle tenderness with subsequent negative right ankle x-ray. Patient Dors is pain with ambulation (7/10). Denies recent trauma, surgery, long distance travel, chest pain, dyspnea, hemoptysis, fever, chills. MD Complaint: extremity pain, extremity swelling Onset/Timin -: week(s) Location: right, lower extremity History of Same: No Severity scale (1-10): 7 Consistency: constant Worsens with: weight bearing, walking, exertion, palpation Associated Symptoms: denies other symptoms - Related Data Home Medications Medication Instructions Recorded Confirmed Calcium Carb-Vit D 500Mg-5Mcg 1 tab PO DAILY 12/05/13 08/14/16 [Oscal 500+D 5 Mcg (200 Iu)] HYDROcodone/APAP 10-325MG [[place] 1 tab PO BID PRN 12/05/13 08/14/16 10-325] Losartan/Hydrochlorothiazide 1 tab PO DAILY 12/05/13 08/14/16 [Losartan-Hctz 100-12.5 mg Tab] Metoprolol Succinate [Toprol XL] 50 mg PO DAILY 12/05/13 08/14/16 ALPRAZolam [Alprazolam] 0.5 mg PO BID PRN 08/14/16 08/14/16 Insuln Asp Prt/Insulin Aspart 30 unit SQ AC-BID@0700,1200 08/14/16 08/14/16 [NovoLOG MIX 70-30 VIAL] Insuln Asp Prt/Insulin Aspart 50 unit SQ AC-SUPPER 08/14/16 08/14/16 [NovoLOG MIX 70-30 VIAL] Levothyroxine Sodium [Synthroid] 112 mcg PO DAILY 08/14/16 08/14/16 Meloxicam 15 mg PO DAILY 08/14/16 08/14/16 amLODIPine [Norvasc] 5 mg PO DAILY 08/14/16 08/14/16 metFORMIN HCL [Glucophage] 1,000 mg PO BID 08/14/16 08/14/16 Previous Rx's Medication Instructions Recorded Amoxicillin/Potassium Clav 1 tab PO Q12HR #20 tab 04/12/19 [Augmentin 875-125 Tablet] Cephalexin [Keflex] 500 mg PO Q6HR 10 Days #40 cap 03/26/23 Sulfamethox-Tmp 800-160Mg [Bactrim 1 tab PO Q12HR 10 Days #20 tab 03/26/23 DS 800-160 mg] Cephalexin [Keflex] 500 mg PO Q6HR 1 Days #40 cap 10/30/24 Allergies Allergy/AdvReac Type Severity Reaction Status Date / Time No Known Allergies Allergy Verified 03/26/23 15:39 Review of Systems ROS Statement: Those systems with pertinent positive or pertinent negative responses have been documented in the HPI. ROS Other: All systems not noted in ROS Statement are negative. Past Medical History Past Medical History: Diabetes Mellitus, Hypertension, Sleep Apnea/CPAP/BIPAP, Thyroid Disorder Additional Past Medical History / Comment(s): obesity History of Any Multi-Drug Resistant Organisms: None Reported Past Surgical History: Bariatric Surgery, Section, Cholecystectomy, Joint Replacement, Tonsillectomy, Tubal Ligation Additional Past Surgical History / Comment(s): Bunyan surgery, D&Cs knee rep lacement Past Anesthesia/Blood Transfusion Reactions: Motion Sickness, Postoperative Nausea & Vomiting (PONV) Past Psychological History: Anxiety, Depression Smoking Status: Current every day smoker, Former smoker Past Alcohol Use History: None Reported Past Drug Use History: None Reported - Past Family History Mother Family Medical History: Cancer Father Family Medical History: Diabetes Mellitus Additional Family Medical History / Comment(s): epilepsy General Exam Limitations: no limitations General appearance: alert, in no apparent distress Head exam: Present: atraumatic, normocephalic, normal inspection Eye exam: Present: normal appearance, PERRL, EOMI. Absent: scleral icterus, conjunctival injection, periorbital swelling ENT exam: Present: normal exam, mucous membranes moist Neck exam: Present: normal inspection. Absent: tenderness, meningismus, lymphadenopathy Respiratory exam: Present: normal lung sounds bilaterally. Absent: respiratory distress, wheezes, rales, rhonchi, stridor Cardiovascular Exam: Present: regular rate, normal rhythm, normal heart sounds. Absent: systolic murmur, diastolic murmur, rubs, gallop, clicks GI/Abdominal exam: Present: soft, normal bowel sounds. Absent: distended, tenderness, guarding, rebound, rigid Extremities exam: Present: full ROM, normal capillary refill, pedal edema (Positive RLE pitting edema extending to knee), calf tenderness (Minor calf tenderness with palpation), other (Posterior tibialis pulse +1, motor function intact. Patient notes decreased sensation attributed to diabetic neuropathy. Some overlying erythema noted on inferior aspect of right morales. Negative stasis dermatitis, obvious open wound/ulceration.). Absent: joint swelling Back exam: Present: normal inspection Neurological exam: Present: alert, oriented X3, CN II-XII intact Psychiatric exam: Present: normal affect, normal mood Skin exam: Present: warm, dry, intact, normal color. Absent: rash Course Vital Signs 10/30/24 10/30/24 16:44 18:37 Temperature 97.9 F 98 F Pulse Rate 76 72 Respiratory 18 18 Rate Blood Pressure 166/81 152/80 O2 Sat by Pulse 99 99 Oximetry Medical Decision Making - Medical Decision Making Was pt. sent in by a medical professional or institution (, PA, JOB PLACEMENT COUNSELOR, urgent care, hospital, or residential...) When possible be specific @ -No Did you speak to anyone other than the patient for history (EMS, parent, family, police, friend...)? What history was obtained from this source @ -No Did you review nursing and triage notes (agree or disagree)? Why? @ -I reviewed and agree with nursing and triage notes Were old charts reviewed (outside hosp., previous admission, EMS record, old EKG, old radiological studies, urgent care reports/EKG's, residential records)? Report findings @ -No old charts were reviewed Differential Diagnosis (chest pain, altered mental status, abdominal pain women, abdominal pain men, vaginal bleeding, weakness, fever, dyspnea, syncope, headache, dizziness, GI bleed, back pain, seizure, CVA, palpatations, mental health, musculoskeletal)? @ -Differential Musculoskeletal Muscular strain, contusion, ligament sprain, fracture, arthritis, septic arthritis, bursitis, cellulitis, muscle spasm, nerve compression, DVT, arterial occlusion, herpes zoster, electrolyte abnormality, tumor.... This is not meant to be in all inclusive list EKG interpreted by me (3pts min.). @ -Not done X-rays interpreted by me (1pt min.). @ -None done CT interpreted by me (1pt min.). @ -None done U/S interpreted by me (1pt. min.). @ -RLE Doppler ultrasound negative for DVT. What testing was considered but not performed or refused? (CT, X-rays, U/S, labs)? Why? @ -None What meds were considered but not given or refused? Why? @ -None Did you discuss the management of the patient with other professionals (professionals i.e. , PA, JOB PLACEMENT COUNSELOR, lab, RT, psych nurse, social media editor, commercial fisherman, teacher, juvenile corrections officer, machine adjuster leader case trim)? Give summary @ -No Was smoking cessation discussed for >3mins.? @ -No Was critical care preformed (if so, how long)? @ -No Were there social determinants of health that impacted care today? How? (Homelessness, low income, unemployed, alcoholism, drug addiction, transportation, low edu. Level, literacy, decrease access to med. care, longterm, re hab)? @ -No Was there de-escalation of care discussed even if they declined (Discuss DNR or withdrawal of care, Hospice)? DNR status @ -No What co-morbidities impacted this encounter? (DM, HTN, Smoking, COPD, CAD, Cancer, CVA, ARF, Chemo, Hep., AIDS, mental health diagnosis, sleep apnea, morbid obesity)? @ -None Was patient admitted / discharged? Hospital course, mention meds given and route, prescriptions, significant lab abnormalities, going to OR and other pertinent info. @ -RLE Doppler ultrasound negative for DVT. Patient provided p.o. Tylenol for pain and initial dose of Keflex for suspected cellulitis. Keflex regimen sent to patient's pharmacy. Advise follow-up with PCP regarding any ongoing or nonresolving pain/swelling despite antibiotic use. Discussed patient with Dr. Wells. Undiagnosed new problem with uncertain prognosis? @ -No Drug Therapy requiring intensive monitoring for toxicity (Heparin, Nitro, Insulin, Cardizem)? @ -No Were any procedures done? @ -No Diagnosis/symptom? @ -RLE cellulitis Acute, or Chronic, or Acute on Chronic? @ -Acute Uncomplicated (without systemic symptoms) or Complicated (systemic symptoms)? @ -Uncomplicated Side effects of treatment? @ -No Exacerbation, Progression, or Severe Exacerbation? @ -No Poses a threat to life or bodily function? How? (Chest pain, [place], [place], pneumonia, PE, COPD, DKA, ARF, appy, cholecystitis, CVA, Diverticulitis, Homicidal, Suicidal, threat to staff... and all critical care pts) @ -No Disposition Clinical Impression: Cellulitis of right lower leg, Edema of lower extremity Disposition: HOME SELF-CARE Condition: Good Instructions (If sedation given, give patient instructions): Cellulitis (ED) Additional Instructions: Tylenol every 4-6 hours as needed for pain. Compression stocking and elevation of leg for leg swelling. Return to ER if experiencing worsening pain or fever, red streaking. Follow-up with PCP in the next week. Prescriptions: Cephalexin [Keflex] 500 mg PO Q6HR 1 Days #40 cap Is patient prescribed a controlled substance at d/c from ED?: No Referrals: Isac Duarte [Primary Care Provider] - 1-2 days Time of Disposition: 18:25
[2024-10-30] MEDS: ACETAMINOPHEN TAB 500 MG TAB PO STA (17:20)
--- NOTE | 2024-10-30 17:49 | US ---
EXAMINATION TYPE: US venous doppler duplex LE RT DATE OF EXAM: 10/30/2024 5:42 PM COMPARISON: NONE CLINICAL INDICATION: Female, 63 years old with history of pain; patient states right ankle pain and s welling. no hx dvt. not on thinners TECHNIQUE: The lower extremity deep venous system is examined utilizing real time linear array sonog saida with graded compression, doppler sonography and color-flow sonography. Grayscale, color doppler , spectral doppler imaging performed of the deep veins of the lower extremities FINDINGS: SIDE PERFORMED: Right VESSELS IMAGED: Common Femoral Vein Deep Femoral Vein Greater Saphenous Vein * Femoral Vein Popliteal Vein Small Saphenous Vein * Proximal Calf Veins (* superficial vessels) Right Leg: Negative for DVT; There is normal flow, compressibility, vascular waveforms. edema seen in the calf and ankle IMPRESSION: 1. No evidence for deep vein thrombosis of the right lower extremity. 2. Subcutaneous edema of the calf and ankle. [facility], , 10/30/2024 5:47 PM
[2024-10-30] MEDS: CEPHALEXIN 500 MG CAP PO STA (18:12)
[2024-10-30 18:38] VITALS: BP 152/80; PULSE 72; TEMP 98
== END 2024-10-30 18:39 | disposition home or self-care (01) ==
LOC: EC 16:42
DX: L03.115 Cellulitis of right lower limb (principal)
CPT/HCPCS: 99283